=== PATIENT | male | born 2000 | race Caucasian/White ===

== ENCOUNTER 2019-07-19 06:20 | Outpatient (CLI) | payer OTHER, SELFPAY ==
[2019-07-19 07:07] LABS: Basophils % 0.5 %; Eosinophils # 0.2 10^3/uL (0.0-0.8); Eosinophils % 2.5 %; Hemoglobin 14.5 g/dL (11.7-16.6); Lymphocytes # 2.9 10^3/uL (1.5-6.5); Lymphocytes % 36.9 %; Mean Corpuscular Hemoglobin 27.6 pg (28.0-34.0); Mean Corpuscular Volume 83.8 fL (80-94); Mean Platelet Volume 9.1 fL (7.4-10.4); Monocytes # 0.7 10^3/uL (0.2-0.9); Monocytes % 8.2 %; Neutrophils # 4.1 10^3/uL (1.8-8.0); Neutrophils % 51.8 %; Nucleated Red Blood Cells % 0 %; Platelet Count 360 10^3/cmm (130-400); Red Blood Count 5.25 10^6/uL (4.1-5.3); Red Cell Distribution Width 11.9 % (12.1-15.1); White Blood Count 7.9 10^3/uL (4.5-13.0)
[2019-07-19 07:20] LABS: Estmated Average Glucose 100; Glucose Fasting 102 mg/dL (74-109); Hemoglobin A1C 5.1 % (4.0-6.0)
[2019-07-19 07:21] LABS: Alanine Aminotransferase 16 U/L (0-41); Albumin Level 4.9 g/dL (3.5-5.2); Alkaline Phosphatase 72 IU/L (40-130); Anion Gap 18.4 (5-19); Aspartate Amino Transferase 14 U/L (0-40); Blood Urea Nitrogen 16 mg/dL (6-20); Calcium 10.5 mg/dL (8.5-10.5); Carbon Dioxide 25 mmol/L (22-29); Chloride 103 mmol/L (98-107); Globulin 2.6 g/dL (1.3-4.6); Glomerular Filtration Rate 96.3 mL/min (90-130); Glucose 104 mg/dL (65-115); Potassium 4.4 mmol/L (3.5-5.1); Sodium 142 mmol/L (136-145); Total Bilirubin 0.6 mg/dL (0.15-1.2); Total Protein 7.5 g/dL (6.6-8.7)
[2019-07-19 08:55] LABS: Glucose 1 Hour 166 mg/dL
[2019-07-19 09:49] LABS: Glucose 2 Hour 99 mg/dL
[2019-07-19 11:17] LABS: Glucose 3 Hour 85 mg/dL
== END 2019-07-19 06:21 | disposition home or self-care (01) ==
PROVIDERS: Family Provider Internal Medicine; PCP Family Medicine; Visit Provider Nurse Practitioner Family
DX: R53.83 Other fatigue (principal)
CPT/HCPCS: 36415; 80053; 82951; 82952; 83036; 85025

== ENCOUNTER 2024-05-09 08:07 | Emergency (ER) | payer SELFPAY ==
[2024-05-09] VITALS (7 sets, daily range): BP systolic 121–153; BP diastolic 74–105; PULSE 64–119; RESP 15–18; TEMP 36.7; O2SAT 96–100; BMI 26.9
--- NOTE | 2024-05-09 08:57 | W.ED.GENADLT ---
HPI - General Adult General: Chief complaint: General Medical Stated complaint: Rapid Heart Rate Time Seen by Provider: 05/09/24 08:26 History of Present Illness: Associated symptoms: Reports palpitations; Deny chest pain, dyspnea or rash Related Data Home Medications Medication Instructions Recorded Confirmed No Known Home Medications 08/23/19 05/09/24 Allergies Allergy/AdvReac Type Severity Reaction Status Date / Time No Known Allergies Allergy Verified 08/23/19 18:35 Review of Systems Const: Denies: fever(s) or chills Card: Reports: palpitations; Denies: chest pain Resp: Denies: dyspnea GI: Denies: abdominal pain : Denies: dysuria, urinary frequency or urinary urgency Musc: Denies: neck pain or back pain Skin/Breast: Denies: rash PFSH ED PFSH: Social History (Updated 08/23/19 @ 18:37 by Maru Tran LPN) Smoking and tobacco/nicotine status: never used tobacco/nicotine Alcohol intake: never Substance/Drug Use: never Physical Exam Const: COMMON NORMALS: no acute distress GENERAL APPEARANCE: cooperative and comfortable ORIENTATION/CONSCIOUSNESS: Yes awake, Yes oriented to person, Yes oriented to place and Yes oriented to time HENMT: COMMON NORMALS: normocephalic, atraumatic and hearing grossly normal bilaterally HEAD & SCALP: normocephalic and atraumatic Resp: COMMON NORMALS: normal respiratory effort, No retractions, No use of accessory muscles and clear to auscultation bilaterally AUSCULTATION: clear to auscultation bilaterally Cardio: COMMON NORMALS: regular rate, regular rhythm and No murmurs present (Cardio) RATE: regular rate RHYTHM: regular rhythm GI: COMMON NORMALS: Soft to palpation and No hepatosplenomegaly present AUSCULTATION: Yes normoactive bowel sounds PALPATION: Yes Soft to palpation, No Tenderness to palpation present (GI), No Guarding due to palpation present (GI) and Yes No hepatosplenomegaly present Extremity: COMMON NORMALS: normal to inspection, capillary refill normal, no clubbing, cyanosis or edema, no calf tenderness and no pedal edema Neuro: SENSORIUM/ORIENTATION: Yes oriented to person, Yes oriented to place and Yes oriented to time Skin: COMMON NORMALS: no rashes or lesions noted GENERAL SKIN EXAM: no rashes or lesions noted Course Vital Signs: Vital signs: Vital Signs Temperature 98.1 F 05/09/24 08:26 Pulse Rate 110 H 05/09/24 08:26 Respiratory Rate 18 05/09/24 08:26 Blood Pressure 147/84 05/09/24 08:26 Pulse Oximetry 100 05/09/24 08:26 Oxygen Delivery Me thod Room Air 05/09/24 08:26 Discharge Plan Discharge Condition: Stable Prescriptions: No Action No Known Home Medications Referrals: Ana Houston MD [Primary Care Provider] - Coding Level of Care Code ED Purchasing Director for [facility]
--- NOTE | 2024-05-09 09:07 | ED_ITS ---
HPI - Arrhythmia/Palpitations 2 General: Chief Complaint: General Medical Stated Complaint: Rapid Heart Rate Time Seen by Provider: 05/09/24 08:26 Source: patient Mode of arrival: ambulatory Limitations: no limitations History of Present Illness: Patient is a 23-year-old male with no known past medical history here for an episode of racing heart rate. Patient tells me he has had multiple identical to previous episodes stating he at one point was having them weekly. In between episodes he is completely asymptomatic. He states his episode this morning lasted longer than normal. 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 He states yesterday evening he intentionally stayed up all night so he can get used to his new schedule. He states this morning (after staying up all night) he did drink a couple coffee. He states following this he began noticing his heart was racing. He was tachycardic upon arrival but during my initial examination with patient heart rate is anywhere from 85-90. He does tell me that he still does not feel well. He feels nauseous with some mental brain fog. He denies drug use. Rare alcohol use. Denies excessive caffeine use or energy drinks. He does have a history of anxiety. He does feel very anxious after his heart starts racing. MD complaint: rapid heart beat and heart racing Onset (ago): hour(s) Duration: now resolved Severity: moderate Context: occurred during rest Associated symptoms: Reports anxiety and nausea; Deny pre-syncope, syncope or vomiting Related Data Home Medications Medication Instructions Recorded Confirmed No Known Home Medications 08/23/19 05/09/24 Allergies Allergy/AdvReac Type Severity Reaction Status Date / Time No Known Allergies Allergy Verified 08/23/19 18:35 Review of Systems 2 Const: Denies: fever(s), chills, body aches, fatigue or malaise Eyes: Denies: change in vision, blurry vision, photophobia, floaters or seeing flashes ENMT: Denies: throat pain, odynophagia, ear or mastoid pain, nasal discharge, nasal congestion or sinus pain Card: Denies: chest pain, edema, swelling of feet/ankles, syncope, pre- syncope, dyspnea on exertion, orthopnea, leg pain with exertion or acrocyanosis Resp: Denies: dyspnea, productive cough, non-productive cough, pain on inspiration, hemoptysis or chest congestion GI: Reports: nausea; Denies: abdominal pain, vomiting or diarrhea : Denies: flank pain, difficulty urinating, dysuria, urinary frequency, urinary urgency or urinary hesitancy Musc: Denies: neck pain, back pain, extremity pain, extremity swelling, joint pain or joint swelling Skin/Breast: Denies: rash Neuro: Denies: headache(s), numbness in extremities, weakness in extremities, sensory changes or dizziness Psych: Reports: anxiety PFSH ED 2 PFSH: Social History Smoking and tobacco/nicotine status: never used tobacco/nicotine Alcohol intake: never Substance/Drug Use: never Physical Exam 2 Const: COMMON NORMALS: no acute distress, average body habitus, patient oriented x3, no limitations, healthy appearing, alert and well nourished G ENERAL APPEARANCE: cooperative ORIENTATION/CONSCIOUSNESS: Yes awake, Yes oriented to person, Yes oriented to place and Yes oriented to time HENMT: FACE & SINUS: normal facial exam and face symmetric Eye: COMMON NORMALS: Equal, round and reactive pupils present and EOMs intact bilaterally GENERAL EYE: appearance normal, both eyes and all related structures and normal light reflex PUPIL: Yes Equal, round and reactive pupils present DIRECT OPHTHALMOSCOPY: Yes normal light reflex Neck/C-Spine: COMMON NORMALS: full ROM, no lymphadenopathy and no meningeal signs Resp: COMMON NORMALS: normal respiratory effort and clear to auscultation bilaterally AUSCULTATION: clear to auscultation bilaterally Cardio: COMMON NORMALS: regular rate and regular rhythm RATE: regular rate RHYTHM: regular rhythm GI: COMMON NORMALS: Normal to inspection, nondistended, normoactive bowel sounds present, Soft to palpation and non-tender PALPATION: Yes Soft to palpation Back/Pelvis: COMMON NORMALS: thoracic and lumbar spine normal to inspection Extremity: GENERAL: Yes normal exam except as noted Neuro: NOEL COMA SCALE: document GCS findings Noel coma scale eye opening: Spontaneous Rodney coma scale verbal response: Orientated Rodney coma scale motor response: Obey commands Rodney coma scale total score: 15 COMMON NORMALS: patient oriented x3, moves all extremities, no focal motor deficits and no sensory deficits noted SENSORIUM/ORIENTATION: Yes alert, Yes oriented to person, Yes oriented to place and Yes oriented to time MENINGEAL SIGNS: Yes no meningeal signs Skin: COMMON NORMALS: no rashes or lesions noted GENERAL SKIN EXAM: no rashes or lesions noted Course 2 Vital Signs: Vital signs: Vital Signs Temperature 98.1 F 05/09/24 08:26 Pulse Rate 72 05/09/24 10:00 Respiratory Rate 18 05/09/24 08:26 Blood Pressure 141/84 05/09/24 10:00 Pulse Oximetry 99 05/09/24 10:00 Oxygen Delivery Me thod Room Air 05/09/24 10:00 MDM - Arrhythmia/Palpitations Medical Decision Making Patient is a 23-year-old male here following an episode of a racing heart rate. He was tachycardic upon arrival however at time of my initial examination heart rate is normal. His EKG showing sinus rhythm with sinus arrhythmia with a rate of 82. Patient feeling much better by the end of his stay. Remainder of vitals are unremarkable. His blood work here is unremarkable. History provided was that he stayed up all night preparing to start a new job on the shift superintendent ca[employer]ic cresylate. In addition to caffeine use this morning. This certainly could have influenced this episode. He reports multiple previous identical episodes. Will have case management set him up with primary care for further evaluation. Return precautions given. Medical Records I reviewed the patient's medical records. Lab Data I reviewed the patient's lab results. 05/09/24 09:48 05/09/24 09:48 Laboratory Results WBC 9.27 10^3/uL (3.29-11.43) 05/09/24 09:48 RBC 5.17 10^6/uL (3.85-5.65) 05/09/24 09:48 Hgb 14.40 g/dL (11.27-16.99) 05/09/24 09:48 Hct 42.1 % (37-53) 05/09/24 09:48 MCV 81.4 fl (82-101) L 05/09/24 09:48 MCH 27.9 pg (27-33) 05/09/24 09:48 MCHC 34.2 g/dL (30-55) 05/09/24 09:48 RDW 12.1 % (12.1-15.1) 05/09/24 09:48 Plt Count 338 10^3/cmm (157-399) 05/09/24 09:48 MPV 9.0 fL (7.4-10.4) 05/09/24 09:48 Neut % (Auto) 72.8 % 05/09/24 09:48 Lymph % (Auto) 18.2 % 05/09/24 09:48 Kimble % (Auto) 6.3 % 05/09/24 09:48 Eos % (Auto) 1.8 % 05/09/24 09:48 Baso % (Auto) 0.4 % 05/09/24 09:48 Neut # (Auto) 6.74 10^3/uL (1.8-7.7) 05/09/24 09:48 Lymph # (Auto) 1.7 10^3/uL (0.8-4.8) 05/09/24 09:48 Kimble # (Auto) 0.6 10^3/uL (0.2-0.9) 05/09/24 09:48 Eos # (Auto) 0.2 10^3/uL (0.0-0.8) 05/09/24 09:48 Baso # (Auto) 0.0 10^3/uL (0.0-0.1) 05/09/24 09:48 Nucleated RBC % (auto) 0 % 05/09/24 09:48 Nucleated RBCs # 0.0 /100WBC 05/09/24 09:48 Sodium 141 mmol/L (136-145) 05/09/24 09:48 Potassium 3.7 mmol/L (3.5-5.1) 05/09/24 09:48 Chloride 106 mmol/L (98-107) 05/09/24 09:48 Carbon Dioxide 23 mmol/L (22-29) 05/09/24 09:48 Anion Gap 15.7 (5-19) 05/09/24 09:48 BUN 11 mg/dL (6-20) 05/09/24 09:48 Creatinine 0.9 mg/dL (0.7-1.2) 05/09/24 09:48 GFR Calculation 103.7 mL/min (90-130) 05/09/24 09:48 Glucose 106 mg/dL (65-115) 05/09/24 09:48 Calculated Osmolality 292 mOsm/kg (285-295) 05/09/24 09:48 Calcium 10.0 mg/dL (8.5-10.5) 05/09/24 09:48 Total Bilirubin 0.3 mg/dL (0.15-1.2) 05/09/24 09:48 AST 21 U/L (0-40) 05/09/24 09:48 ALT 34 U/L (0-41) 05/09/24 09:48 Alkaline Phosphatase 81 U/L (40-130) 05/09/24 09:48 Total Protein 7.5 g/dL (6.6-8.7) 05/09/24 09:48 Albumin 4.6 g/dL (3.5-5.2) 05/09/24 09:48 Globulin 2.9 g/dL (1.3-4.6) 05/09/24 09:48 TSH 3.59 uIU/mL (0.27-4.20) 05/09/24 09:48 Urine Opiates Screen Negative ng/mL (Negative) 05/09/24 09:50 Ur Barbiturates Screen Negative ng/mL (Negative) 05/09/24 09:50 Ur Phencyclidine Scrn Negative ng/mL (Negative) 05/09/24 09:50 Ur Amphetamines Screen Negative ng/mL (Negative) 05/09/24 09:50 U Benzodiazepines Scrn Negative ng/mL (Negative) 05/09/24 09:50 Urine Cocaine Screen Negative ng/mL (Negative) 05/09/24 09:50 U Marijuana (THC) Screen Negative ng/mL (Negative) 05/09/24 09:50 No radiology studies performed this visit Discharge Plan Discharge Patient Disposition: Home Clinical Impression: Racing heart beat Condition: Stable Prescriptions: No Action No Known Home Medications Discharge Orders: Discharge ED (Routine); Ordered 05/09/24 Ordered By: Ellen Jack Referrals: Ana Houston MD [Primary Care Provider] - Activity Restrictions/Additional Instructions: As we discussed, your emergency department workup here was overall unremarkable. We have case management set you up to see primary care for further evaluation. I would recommend attempting to avoid all stimulant substances including caffeine, nicotine, and vaping. Try to get adequate amount of sleep. Please follow-up with primary care for further evaluation. Coding Level of Care Code ED Jordan Worker for [facility]
--- NOTE | 2024-05-09 09:08 | ECG_ITS ---
[facility] Pat Name: Bruce Cai Department: Room: Gender: Male Defensive Secondary Coach: : 2000 Requested By: Ellen Jack Order Number: [id number] Titus MD: Alonzo Gutierrez M.D. Measurements Intervals [place] Rate: 82 P: 72 MO: 153 QRS: 73 QRSD: 117 T: 63 QT: 371 QTc: 436 Interpretive Statements SINUS RHYTHM WITH SINUS ARRHYTHMIA MODERATE INTRAVENTRICULAR CONDUCTION DELAY [110+ ms QRS DURATION] No previous ECG available for comparison Electronically Signed On 05-09-2024 20:29:14 ELECTRIC APPLIANCE INSTALLER by Alonzo Gutierrez M.D. [email or web address]
[2024-05-09 10:05] LABS: Basophils % 0.4 %; Eosinophils # 0.2 10^3/uL (0.0-0.8); Eosinophils % 1.8 %; Hematocrit 42.1 % (37-53); Lymphocytes # 1.7 10^3/uL (0.8-4.8); Lymphocytes % 18.2 %; Mean Corpuscular HGB Conc 34.2 g/dL (30-55); Mean Corpuscular Hemoglobin 27.9 pg (27-33); Mean Corpuscular Volume 81.4 fl (82-101); Monocytes # 0.6 10^3/uL (0.2-0.9); Monocytes % 6.3 %; Neutrophils # 6.74 10^3/uL (1.8-7.7); Neutrophils % 72.8 %; Nucleated Red Blood Cells % 0 %; Platelet Count 338 10^3/cmm (157-399); Red Blood Count 5.17 10^6/uL (3.85-5.65); Red Cell Distribution Width 12.1 % (12.1-15.1); White Blood Count 9.27 10^3/uL (3.29-11.43)
[2024-05-09 10:27] LABS: Amphetamines Screen Urine Negative (Negative); Barbiturates Screen Urine Negative (Negative); Benzodiazepines Screen Urine Negative (Negative); Cocaine Screen Urine Negative (Negative); Opiate Screen Urine Negative (Negative); PCP Screen Urine Negative (Negative); THC Screen Urine Negative (Negative)
[2024-05-09 10:33] LABS: Alanine Aminotransferase 34 U/L (0-41); Albumin Level 4.6 g/dL (3.5-5.2); Alkaline Phosphatase 81 U/L (40-130); Anion Gap 15.7 (5-19); Aspartate Amino Transferase 21 U/L (0-40); Blood Urea Nitrogen 11 mg/dL (6-20); Carbon Dioxide 23 mmol/L (22-29); Chloride 106 mmol/L (98-107); Creatinine Clr Calc Pharmacy 156.4955; Globulin 2.9 g/dL (1.3-4.6); Glomerular Filtration Rate 103.7 mL/min (90-130); Glucose 106 mg/dL (65-115); Osmolality Calculated 292 mOsm/kg (285-295); Potassium 3.7 mmol/L (3.5-5.1); Sodium 141 mmol/L (136-145); Thyroid Stimulating Hormone 3.59 uIU/mL (0.27-4.20); Total Bilirubin 0.3 mg/dL (0.15-1.2); Total Protein 7.5 g/dL (6.6-8.7)
== END 2024-05-09 11:40 | disposition home or self-care (01) ==
PROVIDERS: Family Medicine; Emergency Provider Physician Assistant; PCP Family Medicine
DX: R00.0 Tachycardia, unspecified (principal)
CPT/HCPCS: 36415; 80053; 80306; 84443; 85025; 93005; 99284

== ENCOUNTER 2024-05-20 00:23 | Emergency (ER) | payer SELFPAY ==
[2024-05-20 00:43] VITALS: BP 163/106; PULSE 74; RESP 16; TEMP 36.7; O2SAT 99; BMI 26.9
--- NOTE | 2024-05-20 00:45 | ECG_ITS ---
[facility]24[facility]20 Pat Name: Bruce Cai Department: Room: Gender: Male Regional Business Manager: : 2000 Requested By: Jair Law Order Number: [id number] Titus MD: Olivia Webb M.D. Measurements Intervals [place] Rate: 78 P: 36 RI: 132 QRS: 52 QRSD: 102 T: 48 QT: 352 QTc: 401 Interpretive Statements SINUS RHYTHM Compared to ECG 05/09/2024 09:08:22 Sinus arrhythmia no longer present Intraventricular conduction delay no longer present Electronically Signed On 05-20-2024 21:34:50 FULL STACK SOFTWARE ENGINEER by Olivia Webb M.D. [email or web address]
[2024-05-20 03:01] VITALS: BP 148/89; PULSE 79; O2SAT 96
[2024-05-20 03:37] VITALS: BP 153/88; PULSE 78; O2SAT 95
[2024-05-20 05:07] VITALS: BP 134/90; PULSE 77; O2SAT 93
--- NOTE | 2024-05-20 05:13 | W.ED.ARRPALP ---
HPI - Arrhythmia/Palpitations General: Chief Complaint: Arrhythmia/Palpitations Stated Complaint: fast heart rate dizzy Time Seen by Provider: 05/20/24 05:02 History of Present Illness: The patient presents to the emergency department with a chief complaint of pounding heart rate and blurry vision, similar to an episode experienced 2 weeks ago. The patient reports a history of elevated blood pressure, with a previous reading of 160. During the last visit, the patient experienced a heart rate of 120. The patient describes episodes of brain fog and a pounding heart rate, even while at rest. The patient has a primary care doctor but believes she may be retiring soon. The patient denies any abdominal pain during the examination. Related Data Home Medications Medication Instructions Recorded Confirmed No Known Home Medications 08/23/19 05/09/24 Allergies Allergy/AdvReac Type Severity Reaction Status Date / Time No Known Allergies Allergy Verified 08/23/19 18:35 [facility] ED PFSH: Social History Smoking and tobacco/nicotine status: never used tobacco/nicotine Alcohol intake: never Substance/Drug Use: never Physical Exam Const: COMMON NORMALS: no acute distress, patient oriented x3, healthy appearing, alert and well nourished HENMT: COMMON NORMALS: normocephalic HEAD & SCALP: normocephalic Eye: COMMON NORMALS: EOMs intact bilaterally Neck/C-Spine: COMMON NORMALS: full ROM and supple Resp: COMMON NORMALS: normal respiratory effort, No retractions and clear to auscultation bilaterally AUSCULTATION: clear to auscultation bilaterally Cardio: COMMON NORMALS: regular rate, regular rhythm, No gallops present (Cardio) and No murmurs present (Cardio) RATE: regular rate RHYTHM: regular rhythm GI: COMMON NORMALS: Soft to palpation and non-tender PALPATION: Yes Soft to palpation Extremity: GENERAL: Yes normal exam except as noted Neuro: COMMON NORMALS: patient oriented x3 SENSORIUM/ORIENTATION: Yes alert Skin: COMMON NORMALS: no rashes or lesions noted GENERAL SKIN EXAM: no rashes or lesions noted Course Vital Signs: Vital signs: Vital Signs Temperature 98.1 F 05/20/24 00:43 Pulse Rate 77 05/20/24 05:07 Respiratory Rate 16 05/20/24 00:43 Blood Pressure 134/90 05/20/24 05:07 Pulse Oximetry 93 05/20/24 05:07 Oxygen Delivery Me thod Room Air 05/20/24 00:43 MDM - Arrhythmia/Palpitations Medical Decision Making 23-year-old male presents to the emergency department for evaluation of racing heart rate. Patient was in the emergency department approximately 2 weeks for the same. Patient states that he needs to establish with a new primary care physician. Counseled the patient that his blood pressure and palpitations do need further management by his primary care provider. Patient's heart rate has been normal throughout this hospital stay. EKG was unremarkable. Return precautions were discussed and the patient was discharged home in good condition. No radiology studies performed this visit EKG Data EKG 1: Interpretation: Normal sinus rhythm with a rate of 78, parable 132, QRS duration 102, QTc of 385, no ST segment elevation or depression Discharge Plan Discharge Patient Disposition: Home Clinical Impression: Palpitations, Anxiety Condition: Stable Prescriptions: No Action No Known Home Medications Discharge Orders: Discharge ED (Routine); Ordered 05/20/24 Ordered By: Jair Slaughter Referrals: Ana Houston MD [Primary Care Provider] - Discharge Diet: Advance as tolerated Discharge Activity: Resume usual activity Patient Instructions: Opioid Safety, Pain Management Activity Restrictions/Additional Instructions: Please follow-up with your primary care physician for management of high blood pressure as well as anxiety with panic attacks. Find resources to learn cognitive behavioral therapy skills such as grounding. Please return to the emergency department with any new or worsening symptoms. Coding Level of Care Code ED Felled Seam Operator for [facility]
[2024-05-20 05:28] VITALS: BP 134/90; PULSE 82; RESP 20; O2SAT 99
== END 2024-05-20 05:29 | disposition home or self-care (01) ==
PROVIDERS: Emergency Provider General Practice; PCP Family Medicine
DX: R00.2 Palpitations (principal); F41.9 Anxiety disorder, unspecified
CPT/HCPCS: 93005; 99283